=== PATIENT | male | born 1980 | race Caucasian/White ===

== ENCOUNTER 2018-12-19 20:46 | Emergency (ER) | payer OTHER ==
[~2018-12-19] VITALS: Ht 177.8 cm; Wt 68.0 kg
[2018-12-19] MEDS ORDERED: Augmentin 875-1 EACH PO (23:42)
== END 2018-12-19 23:50 | disposition home or self-care (01) ==
LOC: ER 20:46
DX: S01.551A Open bite of lip, initial encounter (principal); S01.85XA Open bite of other part of head, initial encounter; S01.511A Laceration without foreign body of lip, initial encounter; F17.200 Nicotine dependence, unspecified, uncomplicated; W54.0XXA Bitten by dog, initial encounter
CPT/HCPCS: 12013; 99283-25

== ENCOUNTER 2019-03-22 23:09 | Emergency (ER) | payer OTHER ==
[~2019-03-22] VITALS: Ht 180.3 cm; Wt 65.8 kg
[~2019-03-22 23:09] MED LIST: Augmentin 875-1 EACH PO
== END 2019-03-22 23:43 ==
LOC: ER 23:09
DX: S31.030A Puncture wound without foreign body of lower back and pelvis without penetration into retroperitoneum, initial encounter (principal); S80.811A Abrasion, right lower leg, initial encounter; Y35.892A Legal intervention involving other specified means, bystander injured, initial encounter; F17.200 Nicotine dependence, unspecified, uncomplicated
CPT/HCPCS: 72100; 99283-25